=== PATIENT | female | born 2000 | race Caucasian/White ===

== ENCOUNTER → 2020-07-05 | Outpatient (CLI) | payer BC, OTHER ==
[~2020-07-05] MED LIST: OXYC500S2 PO
[2020-07-05 13:23] LABS: BASOPHILS % (AUTO) 0 % (0-10); EOSINOPHILS # (AUTO) 0.2 10^3/uL (0.0-0.3); EOSINOPHILS % (AUTO) 8 % (0-10); HEMATOCRIT 39 % (35-52); HEMOGLOBIN 12.4 g/dL (11.5-16.0); LYMPHOCYTES # (AUTO) 0.6 10^3/uL (1.0-4.0); LYMPHOCYTES % (AUTO) 21 % (12-44); MEAN CORPUSCULAR HEMOGLOBIN 29 pg (25-34); MEAN CORPUSCULAR HGB CONC 32 g/dL (32-36); MEAN CORPUSCULAR VOLUME 89 fL (80-99); MONOCYTES # (AUTO) 0.2 10^3/uL (0.0-1.0); MONOCYTES % (AUTO) 7 % (0-12); NEUTROPHILS # (AUTO) 1.8 10^3/uL (1.8-7.8); NEUTROPHILS % (AUTO) 65 % (42-75); PLATELET COUNT 131 10^3/uL (130-400); WHITE BLOOD COUNT 2.7 10^3/uL (4.3-11.0)
[2020-07-05 13:38] LABS: SMEAR SCAN COMMENT YES
[2020-07-05 13:43] LABS: ERYTHROCYTE SEDIMENTATION RATE 16 MM/HR (0-20)
[2020-07-05 13:49] LABS: ALANINE AMINOTRANSFERASE 12 U/L (0-55); ALBUMIN 4.4 GM/DL (3.2-4.5); ALKALINE PHOSPHATASE 49 U/L (40-136); AMYLASE 44 U/L (25-125); BILIRUBIN,TOTAL 0.2 MG/DL (0.1-1.0); BUN/CREATININE RATIO 7; CARBON DIOXIDE 22 MMOL/L (21-32); CHLORIDE 102 MMOL/L (98-107); GFR ESTIMATED > 60; GLUCOSE 85 MG/DL (70-105); LIPASE 11 U/L (8-78); POTASSIUM 4.4 MMOL/L (3.6-5.0); SODIUM 135 MMOL/L (135-145)
== END ==
LOC: LAB 12:40
PROVIDERS: ATTEND Nurse Practitioner Family
DX: R50.9 Fever, unspecified (principal); R10.9 Unspecified abdominal pain
CPT/HCPCS: 36415; 80053; 82150; 83690; 85025; 85652; 86141

== ENCOUNTER 2020-07-06 00:44 | Emergency (ER) | payer OTHER ==
[~2020-07-06] VITALS: Ht 170 cm; Wt 58.0 kg
[2020-07-06] MEDS ORDERED: hydrOXYzine (VISTARIL/ATARAX) 25 MG capsule/tablet PO ONE (02:30)
--- NOTE | 2020-07-06 04:13 | ED General ---
General Chief Complaint: Allergic Reaction Stated Complaint: ALLERGIC RXN Nursing Triage Note: PT TO ED W/ C/O CAN'T SLEEP, REDNESS ET ITCHING ONSET THIS EVENING. PT REPORTS SHE THINKS IT'S R/T POMEGRANITE. PT ALSO REPORTS CONSTIPATION, MOOD SWINGS, LOSS OF APPETITE, RECENT DX ET TX OF UTI ET INTERMITTENT FEVERS. NO COUGH, DISCOMFORT OR DISTRESS NOTED. Nursing Sepsis Screen: No Definite Risk Source of Information: Patient, Old Records Exam Limitations: No Limitations History of Present Illness Date Seen by Provider: Jul 06, 2020 Time Seen by Provider: 02:00 Initial Comments This 19-year-old young lady presents to the emergency room with primary complaint of pruritic rash across her chest that is disrupting her sleep. She noticed this rash within the last 24 hours. She notes having fevers in recent days but not in the last 24 hours. She had been treated for urinary tract infection with Bactrim. She finished her last dose yesterday. She took Benadryl 25 mg tonight but that did not resolve the itching satisfactorily. She also reports some other more chronic problems such as weight loss, constipation, mood swings, loss of appetite, etc. She has addressed these issues with her primary care provider. She had labs obtained this morning which were relatively unremarkable except for a leukopenia. Patient also had a pelvic exam performed recently with swabs obtained for infectious screening. She reports these were negative. She denies any cough, shortness of breath, nasal congestion, diarrhea, vomiting, known exposures to COVID-19, or any other symptoms of COVID 19. Allergies and Home Medications Allergies Coded Allergies: sulfamethoxazole (Verified Allergy, Unknown, Rash, 07/06/20) trimethoprim (Verified Allergy, Unknown, Rash, 07/06/20) Home Medications Oxycodone Hcl/Acetaminophen 500 Ml Solution, 2.5 ML PO Q8H Prescribed by: SENTHIL COLLIER on 06/10/11 1302 Patient Home Medication List Home Medication List Reviewed: Yes Review of Systems Review of Systems Constitutional: see HPI EENTM: see HPI Respiratory: no symptoms reported Cardiovascular: no symptoms reported Gastrointestinal: see HPI Genitourinary: see HPI : No Musculoskeletal: no symptoms reported Skin: see HPI Psychiatric/Neurological: See HPI Hematologic/Lymphatic: See HPI Immunological/Allergic: no symptoms reported Past Hbclvfx-[id number]-Gzstja Hx Past Med/Social Hx: Reviewed Nursing Past Med/Soc Hx Patient Social History Alcohol Use: Denies Use Recreational Drug Use: No Smoking Status: Never a Smoker Recent Foreign Travel: No Contact w/Someone Who Travel: No Recent Infectious Disease Expo: No Recent Hopitalizations: No Physical Abuse: No Sexual Abuse: No Mistreated: No Fear: No Past Medical History Surgeries: No Respiratory: No Cardiac: No Neurological: No Genitourinary: No Gastrointestinal: No Musculoskeletal: No Endocrine: No HEENT: No Cancer: No Psychosocial: No Integumentary: No Blood Disorders: No Physical Exam Vital Signs Vital Signs - First Documented 07/06/20 00:51 Temp 36.8 Pulse 88 Resp 18 B/P (MAP) 104/67 (79) Pulse Ox 100 O2 Delivery Room Air Capillary Refill : Less Than 3 Seconds Height, Weight, BMI Height: '" Weight: lbs. oz. kg; 20.00 BMI Method:Stated General Appearance: No Apparent Distress, WD/WN, Thin HEENT: PERRL/EOMI, TMs Normal, Normal ENT Inspection, Other (markedly enlarged tonsils, especially the right. 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 as Tested Skin: Warm/Dry, Rash (slightly raised erythematous macular rash most notably across the upper chest and cheeks.) Progress/Results/Core Measures Suspected Sepsis Recent Fever Within 48 Hours: No Infection Criteria Present: None New/Unexplained Altered Menta: No Sepsis Screen: No Definite Risk SIRS Temperature: Pulse: 88 Respiratory Rate: 18 Blood Pressure 104 /67 Mean: 79 Results/Orders Lab Results Laboratory Tests Test 07/06/20 02:15 Range/Units Group A Streptococcus Screen NEGATIVE NEGATIVE My Orders Orders - MASON GUSTAFSON MD Hydroxyzine Cap/Tab (Vistaril) (07/06/20 02:30) Rapid Strep A Screen (07/06/20 02:23) Lidocaine 2% Viscous 15 Ml (Xylocaine Vi (07/06/20 04:15) Medications Given in ED Current Medications Medications Dose Ordered Sig/Kourtney Route Start Time Stop Time Status Last Admin Dose Admin Hydroxyzine Pamoate 25 mg ONCE ONCE PO 07/06/20 02:30 07/06/20 02:31 DC 07/06/20 02:30 25 MG Lidocaine HCl 5 ml ONCE ONCE MM 07/06/20 04:15 07/06/20 04:16 DC 07/06/20 04:19 5 ML Vital Signs/I&O 07/06/20 04:20 Temp 36.8 Pulse 82 Resp 18 B/P (MAP) 122/68 (79) Pulse Ox 100 O2 Delivery Room Air Capillary Refill : Less Than 3 Seconds Blood Pressure Mean: 79 Progress Note : Progress Note Because of patient's pharyngeal exam, and rapid strep swab was obtained. It was negative. Patient reports she has chronic tonsillar hypertrophy and has been advised to have her tonsils removed by multiple physicians. In regard to her rash, I suspect it is either a drug reaction from Bactrim or a viral exanthem. I discussed this with the patient at length. We discussed means to treat the itching. For the short-term to help her sleep this morning she was given lidocaine jelly to numb the skin. She was also given hydroxyzine for the itching which did help some. I strongly advised her to follow-up on the leukopenia by obtaining labs again in a week or 2. I suspect this also is due to a viral syndrome. Patient seemed fairly anxious about her health. I spent 20 minutes or more in consultation with the patient discussing these issues. Departure Impression Primary Impression: Rash Additional Impressions: Febrile illness Tonsillar hypertrophy Leukopenia Qualified Codes: D72.819 - Decreased white blood cell count, unspecified Disposition: 01 HOME, SELF-CARE Condition: Improved Departure-Patient Inst. Decision time for Depature: 04:09 Referrals: GAVIOTA MARIE DO (PCP/Family) Primary Care Physician Patient Instructions: Adverse Drug Reactions, Adult (DC), Viral Exanthem Add. Discharge Instructions: Your rash and low white blood cell count may be related to recent viral illness. It is also possible your rash and/or fever may have been caused by Bactrim. Contact your primary care provider later today to arrange follow-up. I suggest you have your CBC repeated in 1-2 weeks to ensure the white blood cell count returns to normal. To treat your rash you may take oral antihistamines such as Benadryl (diphenhydramine). Topical anti-itch creams such as diphenhydramine cream or hydrocortisone cream may also be used. Avoid use of Bactrim or other sulfa medications in the future. List this as an antibiotic allergy in future healthcare encounters. All discharge instructions reviewed with patient and/or family. Voiced understanding. Copy Copies To 1: GAVIOTA MARIE JOSHUA T MD Jul 06, 2020 04:13
[2020-07-06] MEDS ORDERED: LIDOCAINE 2% VISCOUS 15 ML UDC MM ONE (04:15)
[2020-07-06 04:20] VITALS: BP 122/68
== END 2020-07-06 04:20 | disposition home or self-care (01) ==
LOC: EDUNIT# 00:44 → ER 00:48
DX: R21 Rash and other nonspecific skin eruption (principal); R50.9 Fever, unspecified; J35.1 Hypertrophy of tonsils; D72.819 Decreased white blood cell count, unspecified; Z88.1 Allergy status to other antibiotic agents; Z88.2 Allergy status to sulfonamides
CPT/HCPCS: 87430; 99284

== ENCOUNTER → 2020-07-23 | Outpatient (CLI) | payer OTHER ==
--- NOTE | 2020-07-23 11:06 | Diagnostic Imaging Report ---
PROCEDURE: US Non-ob pelvis comp/trans. INDICATION: Hyperandrogenism TECHNIQUE: Multiple real time hickman scale sonographic images were obtained of the pelvis transabdominally and endovaginally. CORRELATION STUDY: None FINDINGS: UTERUS: 7.3 x 4.0 x 4.4 cm. The uterus appears unremarkable. ENDOMETRIUM: 2 mm. The endometrium appearing unremarkable. RIGHT OVARY: 3.4 x 2.1 x 1.8 cm LEFT OVARY: 3.3 x 1.5 x 2.1 cm Both ovaries contain multiple small follicles particularly along their peripheral aspect. No definitive dominant cystic mass. Normal blood flow. No significant free pelvic fluid. IMPRESSION: 1. Small follicles of both ovaries. While nonspecific, given the overall appearance and distribution can be seen with polycystic ovarian syndrome. Dictated by: Dictated on workstation # [id number]
== END ==
LOC: RAD 10:00
PROVIDERS: ATTEND Obstetrics & Gynecology
DX: N83.02 Follicular cyst of left ovary (principal); N83.01 Follicular cyst of right ovary; E28.8 Other ovarian dysfunction
CPT/HCPCS: 76830; 76856

== ENCOUNTER 2020-09-02 13:31 | Outpatient (RCR) | payer OTHER ==
[~2020-09-02] VITALS: Ht 170 cm; Wt 56.8 kg
== END 2020-09-02 16:00 | disposition home or self-care (01) ==
LOC: PREOP 13:31
PROVIDERS: ATTEND Otolaryngology Otolaryngology/Facial Plastic Surgery
DX: Z01.818 Encounter for other preprocedural examination (principal)

== ENCOUNTER 2020-10-21 05:45 | Outpatient (RCR) | payer BC, OTHER | END 2021-01-19 | disposition home or self-care (01) | LOC: PREOP 05:45 | PROVIDERS: ATTEND Otolaryngology Otolaryngology/Facial Plastic Surgery | DX: Z01.818 Encounter for other preprocedural examination (principal) ==